=== PATIENT | female | born 1985 | race Two or more races ===

== ENCOUNTER 2023-11-02 19:39 | Emergency (ER) | payer OTHER ==
[~2023-11-02] VITALS: Ht 165.1 cm; Wt 89.4 kg
[2023-11-02] MEDS ORDERED: NASAL MIST126 ML (19:46)
[2023-11-02] MEDS ORDERED: LEVOTHYROXINE25 MCG PO (19:46)
[2023-11-02] MEDS ORDERED: OxyCODONE HCL/APAP UD (PERCOCET) PO STA (21:11)
[2023-11-02] MEDS ORDERED: KETOROLAC TROMETHAMINE 60 MG VIAL IM STA (21:11)
[2023-11-02] MEDS ORDERED: KETOROLAC TROMETHAMINE 60 MG VIAL IM ONE (21:20)
== END 2023-11-02 23:10 | disposition home or self-care (01) ==
LOC: ER 19:39
DX: R07.89 Other chest pain (principal); M54.2 Cervicalgia